=== PATIENT | female | born 1985 | race Caucasian/White ===

== ENCOUNTER 2016-12-27 19:23 | Emergency (ER) | payer OTHER ==
--- NOTE | 2016-12-27 19:43 | ED NURSING NOTES ---
Clinical Report - Nurses [facility] [address] [place] [address] 12/27/2016 19:27 Patient: SUNITHA ORTEGA TRIAGE Triage time 19:35. Chief Complaint: COUGH, RUNNY NOSE and SORE THROAT. --19:41 Sheriff Ren R.N. 19:35 12/27/16. BP: 144/72. HR: 70. RR: 18. O2 saturation: 100%. Temp: 98.3 F. Pain level now: 12/20. --19:41 Sheriff Ren R.N. Weight: 104.3 kg stated. Height/Length: 63 inches Per Patient. BMI: 40.7. --19:36 Sheriff Ren R.N. Medications None. --19:35 Sheriff Ren R.N. Allergies PCN. --19:35 Sheriff Ren R.N. History Arrived by private vehicle. Historian: patient. Onset. (2 days ago). SOCIAL HX: Smoker- current status unknown (No). No alcohol use or drug use. FALL RISK ASSESSMENT: Fall risk assessment completed. No fall risk identified. NUTRITIONAL RISK ASSESSMENT: The nutritional risk assessment revealed no deficiencies. FUNCTIONAL ASSESSMENT: Functional assessment: no impairments noted. LEARNING NEEDS ASSESSMENT: The learning needs assessment revealed no barriers. SKIN INTEGRITY ASSESSMENT: Skin integrity risk assessment completed. No skin integrity risk identified. --19:41 Sheriff Ren R.N. PROBLEMS: Folliculitis. Dental Abscess. Pharyngitis. URI. Herpes Genitalis. STD - Sexually Transmitted Disease. SA. Viral Disease. Dental Caries. Dental Pain. Immunizations. LNMP - Last Normal Menstrual Period. Gallbladder Disease. Asthma. --19:36 Sheriff Ren R.N. Interventions ID band on patient. --19:41 Sheriff Ren R.N. PHYSICAL ASSESSMENT Ambulatory to room. GENERAL / NEURO / PSYCH: Alert. Oriented X 4. Appears in no acute distress. HEENT: Voice within normal limits. Mucous membranes are pink. RESPIRATORY: Respirations not labored. CVS: Capillary refill less than 2 seconds. SKIN: Skin is warm and dry. --19:41 Sheriff Ren R.N. NURSING PROGRESS NOTES Two patient identifiers checked. Call light placed in reach. Side rails up x 2. Bed placed in lowest position. Brakes of bed on. --19:41 Sheriff Ren R.N. 19:45 12/27/2016 Prednisone PO Tablets 60 mg given. Allergies verified and confirmed 5 rights. --19:45 Destiny Dior R.N. DISPOSITION / DISCHARGE Condition at departure: stable. No learning barriers present. Discharge instructions provided and reviewed with the patient. Reviewed medication(s) side effects, precautions, dosing and course information. Prescription(s) given to the patient. Work note given. Patient verbalized understanding. Written instructions provided in [employer]. The patient was discharged home and accompanied by pipe setter. She left the Emergency Department ambulatory and via private vehicle. [employer] Manager driving. --19:57 Destiny Dior R.N. 19:56 12/27/16. BP: deferred. HR: deferred. RR: 16 (regular and unlabored). O2 saturation: deferred. Temp: deferred. Powell-Correa pain scale: 10. --19:57 Destiny Dior R.N. Locked/Released at 12/27/2016 19:57 by Destiny Dior R.N.
--- NOTE | 2016-12-27 19:43 | ED NURSING NOTES ---
Clinical Report - Nurses [facility] [address] [place] [address] 12/27/2016 19:27 Patient: SUNITHA ORTEGA TRIAGE Triage time 19:35. Chief Complaint: COUGH, RUNNY NOSE and SORE THROAT. --19:41 Sheriff Ren R.N. 19:35 12/27/16. BP: 144/72. HR: 70. RR: 18. O2 saturation: 100%. Temp: 98.3 F. Pain level now: 12/20. --19:41 Sheriff Ren R.N. Weight: 104.3 kg stated. Height/Length: 63 inches Per Patient. BMI: 40.7. --19:36 Sheriff Ren R.N. Medications None. --19:35 Sheriff Ren R.N. Allergies PCN. --19:35 Sheriff Ren R.N. History Arrived by private vehicle. Historian: patient. Onset. (2 days ago). SOCIAL HX: Smoker- current status unknown (No). No alcohol use or drug use. FALL RISK ASSESSMENT: Fall risk assessment completed. No fall risk identified. NUTRITIONAL RISK ASSESSMENT: The nutritional risk assessment revealed no deficiencies. FUNCTIONAL ASSESSMENT: Functional assessment: no impairments noted. LEARNING NEEDS ASSESSMENT: The learning needs assessment revealed no barriers. SKIN INTEGRITY ASSESSMENT: Skin integrity risk assessment completed. No skin integrity risk identified. --19:41 Sheriff Ren R.N. PROBLEMS: Folliculitis. Dental Abscess. Pharyngitis. URI. Herpes Genitalis. STD - Sexually Transmitted Disease. SA. Viral Disease. Dental Caries. Dental Pain. Immunizations. LNMP - Last Normal Menstrual Period. Gallbladder Disease. Asthma. --19:36 Sheriff Ren R.N. Interventions ID band on patient. --19:41 Sheriff Ren R.N. PHYSICAL ASSESSMENT Ambulatory to room. GENERAL / NEURO / PSYCH: Alert. Oriented X 4. Appears in no acute distress. HEENT: Voice within normal limits. Mucous membranes are pink. RESPIRATORY: Respirations not labored. CVS: Capillary refill less than 2 seconds. SKIN: Skin is warm and dry. --19:41 Sheriff Ren R.N. NURSING PROGRESS NOTES Two patient identifiers checked. Call light placed in reach. Side rails up x 2. Bed placed in lowest position. Brakes of bed on. --19:41 Sheriff Ren R.N. 19:45 12/27/2016 Prednisone PO Tablets 60 mg given. Allergies verified and confirmed 5 rights. --19:45 Destiny Dior R.N. DISPOSITION / DISCHARGE Condition at departure: stable. No learning barriers present. Discharge instructions provided and reviewed with the patient. Reviewed medication(s) side effects, precautions, dosing and course information. Prescription(s) given to the patient. Work note given. Patient verbalized understanding. Written instructions provided in [place] [employer] [place]. The patient was discharged home and accompanied by dental front office assistant. She left the Emergency Department ambulatory and via private vehicle. Dredge Hand driving. --19:57 Destiny Dior R.N. 19:56 12/27/16. BP: deferred. HR: deferred. RR: 16 (regular and unlabored). O2 saturation: deferred. Temp: deferred. Powell-Correa pain scale: 10. --19:57 Destiny Dior R.N. Locked/Released at 12/27/2016 19:57 by Destiny Dior R.N.
--- NOTE | 2016-12-27 19:43 | ED ORDER SUMMARY ---
..... Patient: SUNITHA ORTEGA N OrderSheet [facility] VisitID: [id number] [address] [place] [address] 31y, F Registration Date/Time: 12/27/2016 ORDER SHEET Weight: 104.3 kg (stated) Allergies: PCN GENERAL ORDERS: MEDICATION ORDERS: Prednisone PO 60 mg (NOW) (19:40 12/27/2016 Piper KNOX) (Ack 19:43 Maxi R.NViry) (19:45 Maxi Carbajal.N.) IV FLUIDS: ORDER SHEET NOTES: [Electronically signed by Destiny Dior R.N. (19:57 12/27/2016)] [Electronically signed by Lul Mcfarland DO (20:53 12/27/2016)] [Electronically locked/signed by Destiny Dior R.N. (19:57 12/27/2016)]
--- NOTE | 2016-12-27 19:43 | ED ORDER SUMMARY ---
..... Patient: SUNITHA ORTEGA N OrderSheet [facility] VisitID: [id number] [address] [place] [address] 31y, F Registration Date/Time: 12/27/2016 ORDER SHEET Weight: 104.3 kg (stated) Allergies: PCN GENERAL ORDERS: MEDICATION ORDERS: Prednisone PO 60 mg (NOW) (19:40 12/27/2016 Piper KNOX) (Ack 19:43 Maxi R.NViry) (19:45 Maxi Carbajal.N.) IV FLUIDS: ORDER SHEET NOTES: [Electronically signed by Destiny Dior R.N. (19:57 12/27/2016)] [Electronically signed by Lul Mcfarland DO (20:53 12/27/2016)] [Electronically locked/signed by Destiny Dior R.N. (19:57 12/27/2016)]
--- NOTE | 2016-12-27 19:43 | ED CLINICAL REPORT ---
Clinical Report - Physicians/Mid Levels [facility] [address] [place] [address] 12/27/2016 19:27 Patient: SUNITHA ORTEGA Time Seen: 19:33. Arrived- By private vehicle. Historian- patient. HISTORY OF PRESENT ILLNESS Chief Complaint: COUGH. This started several days ago and is still present. It was gradual in onset and has been waxing/waning. The illness is described as moderate. The patient has had a cough, nasal congestion and a nasal discharge. No difficulty breathing, chest discomfort or pain, fever or muscle aches. No chills or sore throat. Similar symptoms previously: Recent medical care: Not recently seen/assessed. REVIEW OF SYSTEMS No headache, nausea, vomiting, diarrhea or abdominal pain. No pedal edema, calf pain, difficulty with urination, skin rash or joint pain. She has had mild eye discomfort (watery discharge bilaterally) involving the right eye and left eye with discharge. Denies current . She has had hay fever. All systems otherwise negative, except as recorded above. PAST HISTORY Dental problems Strep throat PROBLEMS: Folliculitis. Dental Abscess. Pharyngitis. URI. Herpes Genitalis. STD - Sexually Transmitted Disease. SA. Viral Disease. Dental Caries. Dental Pain. Gallbladder Disease. Asthma. SOCIAL HISTORY Never smoker. History of drug use "vapes" marijuana occasionally. No alcohol use. FAMILY HISTORY Asthma in first-degree relative (a child). Child with environmental allergies - uses daily Flomax. ADDITIONAL NOTES The nursing notes have been reviewed. PHYSICAL EXAM Vital Signs: 12/27/2016 19:35 BP: 144/72. HR: 70. RR: 18. O2 saturation: 100%. Temp: 98.3 F. Pain level now: 5/10. Appearance: Alert. No acute distress. Eyes: Mild redness of the right conjunctiva and thin, clear exudate on the right; mild redness of the left conjunctiva and thin, clear exudate on the left. Eyes normal inspection. No scleral icterus or pale conjunctivae. ENT: Thin, clear nasal discharge present. Pharynx normal. Uvula midline. No pharyngeal erythema, mouth ulcerations, tonsillar exudate, peritonsillar mass or muffled or hoarse voice. No trismus or trouble handling secretions. The mucous membranes are not dry. Neck: Normal inspection. Neck supple. CVS: Normal heart rate and rhythm. Heart sounds normal. Pulses normal. Respiratory: No respiratory distress. Breath sounds normal. No decreased breath sounds, rales, rhonchi, wheezes or prolonged expiration. No stridor. Abdomen: Soft and nontender. Back: Normal inspection. Skin: Skin warm and dry. Normal skin color. No rash. Normal skin turgor. Extremities: Extremities exhibit normal ROM. No calf tenderness. No lower extremity edema. Neuro: Oriented X 3. No motor deficit. LABS, X-RAYS, AND EKG Pulse Oximetry: 12/27/2016 19:35 O2 saturation: 100%. (FIO2 - room air). Interpretation: normal. PROGRESS AND PROCEDURES Course of Care: Prednisone 60 mg PO given. Most c/w allergic mechanism - doubt bacterial process. Patient/family counseled. Old ED records reviewed. Disposition: Discharged. Condition: stable and improved. CLINICAL IMPRESSION Seasonal allergic rhinitis. Acute atopic conjunctivitis of the right eye and left eye. INSTRUCTIONS Do not work for two days. Drink plenty of fluids. Do not smoke. Warnings: Further evaluation is necessary in order to recheck abnormal lab, obtain test results, conduct further tests and assess the possibility of serious illness. It is very important to follow up with a physician. GENERAL WARNINGS: Return or contact your physician immediately if your condition worsens or changes unexpectedly, if not improving as expected, or if other problems arise. Prescription Medications: Albuterol HFA oral inhaler: inhale 1 to 2 puffs every four to six hours as needed for difficulty breathing. Dispense one (1) unit. No refills. (with spacer) Prednisone 20 mg: take 3 orally every day for 4 days. Dispense sufficient quantity. No refills. Zyrtec 10 mg: take 1 tablet orally every day as needed. Dispense twenty (20). No refills. Substitution is permissible. Flonase nasal spray: 2 sprays to each nostril once daily for allergies. Dispense one (1) unit. No refills. Substitution is permissible. OTC Medications: Afrin nasal spray (Available over the counter): Take according to label instructions. Follow-up: Follow up with your doctor in about two days. Follow-up with: [facility], , , [address] [place] [address], , [place], ; [facility], , , [address], [place] [address]; [facility], Family Practice, , [address] [place] [address] Follow up in about two days. Follow-up with: Tricia Jordan MD, Family Practice, , [facility], [address] [place] [address] Follow up in about two days. (Electronically signed by Lul Mcfarland DO 12/27/2016 20:53)
--- NOTE | 2016-12-27 19:43 | ED CLINICAL REPORT ---
Clinical Report - Physicians/Mid Levels [facility] [address] [place] [address] 12/27/2016 19:27 Patient: SUNITHA ORTEGA Time Seen: 19:33. Arrived- By private vehicle. Historian- patient. HISTORY OF PRESENT ILLNESS Chief Complaint: COUGH. This started several days ago and is still present. It was gradual in onset and has been waxing/waning. The illness is described as moderate. The patient has had a cough, nasal congestion and a nasal discharge. No difficulty breathing, chest discomfort or pain, fever or muscle aches. No chills or sore throat. Similar symptoms previously: Recent medical care: Not recently seen/assessed. REVIEW OF SYSTEMS No headache, nausea, vomiting, diarrhea or abdominal pain. No pedal edema, calf pain, difficulty with urination, skin rash or joint pain. She has had mild eye discomfort (watery discharge bilaterally) involving the right eye and left eye with discharge. Denies current . She has had hay fever. All systems otherwise negative, except as recorded above. PAST HISTORY Dental problems Strep throat PROBLEMS: Folliculitis. Dental Abscess. Pharyngitis. URI. Herpes Genitalis. STD - Sexually Transmitted Disease. SA. Viral Disease. Dental Caries. Dental Pain. Gallbladder Disease. Asthma. SOCIAL HISTORY Never smoker. History of drug use "vapes" marijuana occasionally. No alcohol use. FAMILY HISTORY Asthma in first-degree relative (a child). Child with environmental allergies - uses daily Flomax. ADDITIONAL NOTES The nursing notes have been reviewed. PHYSICAL EXAM Vital Signs: 12/27/2016 19:35 BP: 144/72. HR: 70. RR: 18. O2 saturation: 100%. Temp: 98.3 F. Pain level now: 5/10. Appearance: Alert. No acute distress. Eyes: Mild redness of the right conjunctiva and thin, clear exudate on the right; mild redness of the left conjunctiva and thin, clear exudate on the left. Eyes normal inspection. No scleral icterus or pale conjunctivae. ENT: Thin, clear nasal discharge present. Pharynx normal. Uvula midline. No pharyngeal erythema, mouth ulcerations, tonsillar exudate, peritonsillar mass or muffled or hoarse voice. No trismus or trouble handling secretions. The mucous membranes are not dry. Neck: Normal inspection. Neck supple. CVS: Normal heart rate and rhythm. Heart sounds normal. Pulses normal. Respiratory: No respiratory distress. Breath sounds normal. No decreased breath sounds, rales, rhonchi, wheezes or prolonged expiration. No stridor. Abdomen: Soft and nontender. Back: Normal inspection. Skin: Skin warm and dry. Normal skin color. No rash. Normal skin turgor. Extremities: Extremities exhibit normal ROM. No calf tenderness. No lower extremity edema. Neuro: Oriented X 3. No motor deficit. LABS, X-RAYS, AND EKG Pulse Oximetry: 12/27/2016 19:35 O2 saturation: 100%. (FIO2 - room air). Interpretation: normal. PROGRESS AND PROCEDURES Course of Care: Prednisone 60 mg PO given. Most c/w allergic mechanism - doubt bacterial process. Patient/family counseled. Old ED records reviewed. Disposition: Discharged. Condition: stable and improved. CLINICAL IMPRESSION Seasonal allergic rhinitis. Acute atopic conjunctivitis of the right eye and left eye. INSTRUCTIONS Do not work for two days. Drink plenty of fluids. Do not smoke. Warnings: Further evaluation is necessary in order to recheck abnormal lab, obtain test results, conduct further tests and assess the possibility of serious illness. It is very important to follow up with a physician. GENERAL WARNINGS: Return or contact your physician immediately if your condition worsens or changes unexpectedly, if not improving as expected, or if other problems arise. Prescription Medications: Albuterol HFA oral inhaler: inhale 1 to 2 puffs every four to six hours as needed for difficulty breathing. Dispense one (1) unit. No refills. (with spacer) Prednisone 20 mg: take 3 orally every day for 4 days. Dispense sufficient quantity. No refills. Zyrtec 10 mg: take 1 tablet orally every day as needed. Dispense twenty (20). No refills. Substitution is permissible. Flonase nasal spray: 2 sprays to each nostril once daily for allergies. Dispense one (1) unit. No refills. Substitution is permissible. OTC Medications: Afrin nasal spray (Available over the counter): Take according to label instructions. Follow-up: Follow up with your doctor in about two days. Follow-up with: [facility], , , [address] [place] [address], , [place], ; [facility], , , [address], [place] [address]; [facility], Family Practice, , [address] [place] [address] Follow up in about two days. Follow-up with: Tricia Jordan MD, Family Practice, , [facility], [address] [place] [address] Follow up in about two days. (Electronically signed by Lul Mcfarland DO 12/27/2016 20:53)
--- NOTE | 2016-12-27 20:53 | ED MAR SUMMARY ---
..... Medication Administration Record [facility] [address] [place] [address] Patient: SUNITHA ORTEGA Visit ID: [id number] 31y, F Weight: 104.3 kg Height/Length: 63 in BMI: 40.7 ALLERGIES: PCN Given 19:45 12/27/2016 Destiny Dior R.N. Medication Administered: PREDNISONE [PO], Dose: 60 mg Tablets PO. Medication Ordered: Prednisone PO 60 mg (NOW).
--- NOTE | 2016-12-27 20:53 | ED DISCHARGE INSTRUCTIONS ---
Patient: SUNITHA ORTEGA General Instructions [facility] VisitID: [id number] [address], [place], [place] [id number] 31y, F Registration Date/Time: 12/27/2016 Seasonal allergic rhinitis. Acute atopic conjunctivitis of the right eye and left eye. INSTRUCTIONS Do not work for two days. Drink plenty of fluids. Do not smoke. Warnings: Further evaluation is necessary in order to recheck abnormal lab, obtain test results, conduct further tests and assess the possibility of serious illness. It is very important to follow up with a physician. GENERAL WARNINGS: Return or contact your physician immediately if your condition worsens or changes unexpectedly, if not improving as expected, or if other problems arise. Prescription Medications: Albuterol HFA oral inhaler: inhale 1 to 2 puffs every four to six hours as needed for difficulty breathing. Dispense one (1) unit. No refills. (with spacer) Prednisone 20 mg: take 3 orally every day for 4 days. Dispense sufficient quantity. No refills. Zyrtec 10 mg: take 1 tablet orally every day as needed. Dispense twenty (20). No refills. Substitution is permissible. Flonase nasal spray: 2 sprays to each nostril once daily for allergies. Dispense one (1) unit. No refills. Substitution is permissible. OTC Medications: Afrin nasal spray (Available over the counter): Take according to label instructions. Follow-up: Follow up with your doctor in about two days. Follow-up with: [facility], , , [address] [place] [address], , [place], ; [facility], , , [address], [place] [address]; [facility], , [address] [place] [address] Follow up in about two days. Follow-up with: Tricia Jordan MD, [facility], , [facility], [address] [place] [address] Follow up in about two days. ADDITIONAL INFORMATION Nasal Allergy Nasal Allergy, also called Allergic Rhinitis occurs after exposure to pollen, molds, mildew, animal dander (scales from animal skin, hair and feathers), dust, smoke and fumes. (These are called allergens). When pollen causes a nasal allergy it is commonly called Hay Fever. When these particles contact the lining of the nose, eyes, eyelids, sinuses or throat, they cause the cells to release a chemical called histamine. Histamine may cause a watery discharge from the eyes or nose. It may also cause violent sneezing, nasal congestion, itching of the eyes, nose, throat and mouth. Prevention: Nasal allergy cannot be cured but symptoms can be reduced. Avoid or reduce exposure to the allergen when possible, by the following measures: POLLEN Stay indoors on hot windy days during pollen season Keep windows and doors closed Use an air conditioner with an electrostatic filter DUST, MOLD & MILDEW Follow these measures, especially in the bedroom: When cleaning use vacuum digital content coordinator, oiled mops and damp cloths; dont stir up the dust. Once a week clean the amaya, woodwork and floors with a damp mop and vacuum carpets. Once a year clean the bed frame and springs (do this outside). Cover the box springs with plastic. Do not use mattress pads. Remove stuffed chairs and rugs from the bedroom. Discard old moldy books, furniture and bedding. Use synthetic fabrics for furniture, curtains and bedding. Avoid quilts, comforters, and stuffed toys. ANIMAL DANDER Remove all indoor pets (except fish and reptiles). Avoid all contact with furry animals. Avoid down-stuffed pillows and coats. Some persons are also sensitive to wool and should avoid it. OTHER IRRITANTS Do not smoke and avoid the smoke of others. Some persons are sensitive to cosmetic powder, baby powder and powdered laundry detergents. Therefore, these powders should be avoided. Home Care: DECONGESTANT pills and sprays (Sudafed, NeoSynephrine, Afrin), reduce tissue swelling and watery discharge. Overuse of nasal decongestant sprays may make symptoms worse. Do not use these more often than recommended. ANTIHISTAMINES block the release of histamine during the allergic response. Antihistamines are more effective when taken BEFORE symptoms develop. Unless a prescription antihistamine was prescribed, you may take CLARITIN (loratadine). (Claritin is an xioa-czw-qpdgdoa antihistamine that does not cause drowsiness.) STEROID nasal sprays (Beconase, Vancenase, Nasalide) or oral steroids (Prednisone) may also be prescribed for more severe symptoms. These help to reduce the local inflammation which adds to the allergic response. If you have ASTHMA, pollen season may make your asthma symptoms worse. It is important that you use your asthma medicines as directed during this time to prevent or treat attacks. Some persons with asthma have a worsening of their asthma symptoms when taking antihistamines. If you notice this, stop the antihistamines and notify your doctor. Follow Up with your doctor or as directed by our staff if your symptoms are not improving with the treatment advised. Get Prompt Medical Attention if any of the following occur: Facial or sinus pain or colored drainage from the nose Severe headache or ear pain Fever of 100.4F (38C) or higher, or as directed by your healthcare provider Wheezing or trouble breathing (If you already know you have asthma, return if your asthma symptoms do not respond to the usual doses of your medicine) Cough with lots of colored sputum (mucus) Seasonal Allergy Seasonal Allergy is also called Hay Fever. It may occur after a person is exposed to pollens released from grasses, weeds, trees and shrubs. This type of allergy occurs during the spring and summer when the pollen contacts the lining of the nose, eyes, eyelids, sinuses and throat. This causes discharge from the eyes or nose. Violent sneezing, nasal congestion, post-nasal drip, itching of the eyes, nose, throat and mouth, scratchy throat, and dry cough may also occur. Home Care: Seasonal allergy cannot be cured, but symptoms can be reduced by these measures: Avoid or reduce exposure to the allergen as much as you can: Stay indoors on hot windy days of pollen season. Keep windows and doors closed. Use an air conditioner with an electrostatic filter. DECONGESTANT pills and sprays (Sudafed, NeoSynephrine, Afrin) reduce tissue swelling and watery discharge. If you use the sprays too much, the symptoms may get worse. Do not use these more often than recommended. Do not use decongestants in children unless advised by your doctor. ANTIHISTAMINES block the release of histamine during the allergic response. They work better when taken BEFORE symptoms develop. Unless a prescription antihistamine was prescribed, you may take Claritin (loratadine). This is an zjou-nbx-iiyphcy non-sedating antihistamine. It does not make you drowsy. STEROID nasal sprays (Beconase, Vancenase, Nasalide) or oral steroids (Prednisone) may also be prescribed. These help to reduce the local inflammation that adds to the allergic response. If you have ASTHMA, pollen season may make your asthma symptoms worse. It is important that you use your asthma medicines as directed during this time to prevent or treat attacks. Some persons with ASTHMA have asthma symptoms that get worse when they take ANTIHISTAMINES. This is due to the drying effect on the lungs. If you notice this, stop the antihistamines, drink extra fluids and notify your doctor. If you have sinus congestion or drainage, a saline nasal rinse may give relief. A saline nasal rinse lessens the swelling and clears excess mucus. This allows sinuses to drain. Prepackaged kits are sold at most drug stores. These contain pre-mixed salt packets and an irrigation device. Follow Up with your doctor or as directed by our staff if your symptoms do not improve with the treatment advised. Get Prompt Medical Attention if any of the following occur: Facial, ear or sinus pain; colored drainage from the nose Severe headache Fever of 100.4F (38C) or higher, or as directed by your healthcare provider Wheezing or trouble breathing (If you know you have asthma, return if your asthma symptoms do not respond to the usual doses of your medicine) Cough with lots of colored sputum (mucus) Conjunctivitis, Allergic Allergic Conjunctivitis is a reaction to dust or pollen in the air. This causes itching and redness in the membranes of the eyelids. There may be swelling of the lids, redness, and a gritty or scratchy feeling in the eye. Home Care: Eye drops may be prescribed to reduce itching and redness. Use these as directed. Otherwise, Visine, Vasocon or other vuxi-jhm-lnllzih decongestant eye drops may be used. Apply a cool compress (towel soaked in cool water) to the affected eye 3-4 times a day to reduce swelling and itching. It is common to have mucus drainage during the night causing the eyelids to become crusted by morning. Use a warm wet cloth to wipe this away. You may also use saline irrigating solution or artificial tears to rinse away mucus inside the eye. Do not patch the eye. You may use acetaminophen (Tylenol) or ibuprofen (Motrin, Advil) to control pain, unless another medicine was prescribed. [ NOTE: If you have chronic liver or kidney disease or ever had a stomach ulcer or GI bleeding, talk with your doctor before using these medicines.] Do not wear contact lenses until your eyes have healed and all symptoms are gone. Follow Up with your doctor or this facility as directed, or if there has not been improvement within five days. Get Prompt Medical Attention if any of the following occur: Increased swelling of the eyelid New or worsening drainage from the eye Increasing redness around the eye Facial swelling Albuterol Sulfate Pressurized inhalation, suspension What is this medicine? ALBUTEROL (al BYOO ter ole) is a bronchodilator. It helps open up the airways in your lungs to make it easier to breathe. This medicine is used to treat and to prevent bronchospasm. How should I use this medicine? This medicine is for inhalation through the mouth. Follow the directions on your prescription label. Take your medicine at regular intervals. Do not use more often than directed. Make sure that you are using your inhaler correctly. Ask you doctor or health care provider if you have any questions. Talk to your human resources officer regarding the use of this medicine in children. Special care may be needed. What side effects may I notice from receiving this medicine? Side effects that you should report to your doctor or health wound care rn as soon as possible: allergic reactions like skin rash, itching or hives, swelling of the face, lips, or tongue breathing problems chest pain feeling faint or lightheaded, falls high blood pressure irregular heartbeat fever muscle cramps or weakness pain, tingling, numbness in the hands or feet vomiting Side effects that usually do not require medical attention (report to your doctor or health wound care rn if they continue or are bothersome): cough difficulty sleeping headache nervousness or trembling stomach upset stuffy or runny nose throat irritation unusual taste What may interact with this medicine? anti-infectives like chloroquine and pentamidine caffeine cisapride diuretics medicines for colds medicines for depression or for emotional or psychotic conditions medicines for weight loss including some herbal products methadone some antibiotics like clarithromycin, erythromycin, levofloxacin, and linezolid some heart medicines steroid hormones like dexamethasone, cortisone, hydrocortisone theophylline thyroid hormones What if I miss a dose? If you miss a dose, use it as soon as you can. If it is almost time for your next dose, use only that dose. Do not use double or extra doses. Where should I keep my medicine? Keep out of the reach of children. Store at room temperature between 15 and 30 degrees C (59 and 86 degrees F). The contents are under pressure and may burst when exposed to heat or flame. Do not freeze. This medicine does not work as well if it is too cold. Throw away any unused medicine after the expiration date. Inhalers need to be thrown away after the labeled number of puffs have been used or by the expiration date; whichever comes first. Ventolin HFA should be thrown away 12 months after removing from foil pouch. Check the instructions that come with your medicine. What should I tell my health care provider before I take this medicine? They need to know if you have any of the following conditions: diabetes heart disease or irregular heartbeat high blood pressure pheochromocytoma seizures thyroid disease an unusual or allergic reaction to albuterol, levalbuterol, sulfites, other medicines, foods, dyes, or preservatives or trying to get breast-feeding What should I watch for while using this medicine? Tell your doctor or health wound care rn if your symptoms do not improve. Do not use extra albuterol. If your asthma or bronchitis gets worse while you are using this medicine, call your doctor right away. If your mouth gets dry try chewing sugarless gum or sucking hard candy. Drink water as directed. Prednisone Oral tablet What is this medicine? PREDNISONE (PRED ni sone) is a corticosteroid. It is commonly used to treat inflammation of the skin, joints, lungs, and other organs. Common conditions treated include asthma, allergies, and arthritis. It is also used for other conditions, such as blood disorders and diseases of the adrenal glands. How should I use this medicine? Take this medicine by mouth with a glass of water. Follow the directions on the prescription label. Take this medicine with food. If you are taking this medicine once a day, take it in the morning. Do not take more medicine than you are told to take. Do not suddenly stop taking your medicine because you may develop a severe reaction. Your doctor will tell you how much medicine to take. If your doctor wants you to stop the medicine, the dose may be slowly lowered over time to avoid any side effects. Talk to your human resources officer regarding the use of this medicine in children. Special care may be needed. What side effects may I notice from receiving this medicine? Side effects that you should report to your doctor or health wound care rn as soon as possible: allergic reactions like skin rash, itching or hives, swelling of the face, lips, or tongue changes in emotions or moods changes in vision depressed mood eye pain fever or chills, cough, sore throat, pain or difficulty passing urine increased thirst swelling of ankles, feet Side effects that usually do not require medical attention (report to your doctor or health wound care rn if they continue or are bothersome): confusion, excitement, restlessness headache nausea, vomiting skin problems, acne, thin and shiny skin trouble sleeping weight gain What may interact with this medicine? Do not take this medicine with any of the following medications: metyrapone mifepristone This medicine may also interact with the following medications: aminoglutethimide amphotericin B aspirin and aspirin-like medicines barbiturates certain medicines for diabetes, like glipizide or glyburide cholestyramine cholinesterase inhibitors cyclosporine digoxin diuretics ephedrine female hormones, like estrogens and control pills isoniazid ketoconazole NSAIDS, medicines for pain and inflammation, like ibuprofen or naproxen phenytoin rifampin toxoids vaccines warfarin What if I miss a dose? If you miss a dose, take it as soon as you can. If it is almost time for your next dose, talk to your doctor or health wound care rn. You may need to miss a dose or take an extra dose. Do not take double or extra doses without advice. Where should I keep my medicine? Keep out of the reach of children. Store at room temperature between 15 and 30 degrees C (59 and 86 degrees F). Protect from light. Keep container tightly closed. Throw away any unused medicine after the expiration date. What should I tell my health care provider before I take this medicine? They need to know if you have any of these conditions: Gilmanton's syndrome diabetes glaucoma heart disease high blood pressure infection (especially a virus infection such as chickenpox, cold sores, or herpes) kidney disease liver disease mental illness myasthenia gravis osteoporosis seizures stomach or intestine problems thyroid disease an unusual or allergic reaction to lactose, prednisone, other medicines, foods, dyes, or preservatives or trying to get breast-feeding What should I watch for while using this medicine? Visit your doctor or health wound care rn for regular checks on your progress. If you are taking this medicine over a prolonged period, carry an identification card with your name and address, the type and dose of your medicine, and your doctor's name and address. This medicine may increase your risk of getting an infection. Tell your doctor or health wound care rn if you are around anyone with measles or chickenpox, or if you develop sores or blisters that do not heal properly. If you are going to have surgery, tell your doctor or health wound care rn that you have taken this medicine within the last twelve months. Ask your doctor or health wound care rn about your diet. You may need to lower the amount of salt you eat. This medicine may affect blood sugar levels. If you have diabetes, check with your doctor or health wound care rn before you change your diet or the dose of your diabetic medicine. Cetirizine Hydrochloride Oral tablet What is this medicine? CETIRIZINE (se TI ra zerebeca) is an antihistamine. This medicine is used to treat or prevent symptoms of allergies. It is also used to help reduce itchy skin rash and hives. How should I use this medicine? Take this medicine by mouth with a glass of water. Follow the directions on the prescription label. You can take this medicine with food or on an empty stomach. Take your medicine at regular times. Do not take more often than directed. You may need to take this medicine for several days before your symptoms improve. Talk to your human resources officer regarding the use of this medicine in children. Special care may be needed. While this drug may be prescribed for children as young as 6 years of age for selected conditions, precautions do apply. What side effects may I notice from receiving this medicine? Side effects that you should report to your doctor or health wound care rn as soon as possible: allergic reactions like skin rash, itching or hives, swelling of the face, lips, or tongue changes in vision or hearing fast heartbeat high blood pressure infection trouble passing urine or change in the amount of urine Side effects that usually do not require medical attention (report to your doctor or health wound care rn if they continue or are bothersome): irritability loss of sleep sore throat stomach pain swelling What may interact with this medicine? other medicines for colds or allergies theophylline What if I miss a dose? If you miss a dose, take it as soon as you can. If it is almost time for your next dose, take only that dose. Do not take double or extra doses. Where should I keep my medicine? Keep out of the reach of children. Store at room temperature between 15 and 30 degrees C (59 and 86 degrees F). Throw away any unused medicine after the expiration date. What should I tell my health care provider before I take this medicine? They need to know if you have any of these conditions: kidney disease liver disease an unusual or allergic reaction to cetirizine, hydroxyzine, other medicines, foods, dyes, or preservatives or trying to get breast-feeding What should I watch for while using this medicine? Visit your doctor or health wound care rn for regular checks on your health. Tell your doctor if your symptoms do not improve. You may get drowsy or dizzy. Do not drive, use machinery, or do anything that needs mental alertness until you know how this medicine affects you. Do not stand or sit up quickly, especially if you are an older patient. This reduces the risk of dizzy or fainting spells. Your mouth may get dry. Chewing sugarless gum or sucking hard candy, and drinking plenty of water may help. Contact your doctor if the problem does not go away or is severe. Fluticasone Propionate Nasal spray, solution What is this medicine? FLUTICASONE (floo TIK a sone) is a corticosteroid. It helps decrease inflammation in your nose. This medicine is used to treat the symptoms of allergies like sneezing, itching, and runny or stuffy nose. How should I use this medicine? This medicine is for use in the nose. Follow the directions on your prescription label. This medicine works best if used regularly. Do not use more often than directed. Make sure that you are using your nasal spray correctly. Ask you doctor or health care provider if you have any questions. Talk to your human resources officer regarding the use of this medicine in children. While this drug may be prescribed for children as young as 4 years old for selected conditions, precautions do apply. What side effects may I notice from receiving this medicine? Side effects that you should report to your doctor or health wound care rn as soon as possible: allergic reactions like skin rash, itching or hives, swelling of the face, lips, or tongue changes in vision flu-like symptoms white patches or sores in the mouth or nose Side effects that usually do not require medical attention (report to your doctor or health wound care rn if they continue or are bothersome): burning or irritation inside the nose or throat cough headache nosebleed unusual taste or smell What may interact with this medicine? ketoconazole metyrapone some medicines for HIV vaccines What if I miss a dose? If you miss a dose, use it as soon as you remember. If it is almost time for your next dose, use only that dose and continue with your regular schedule. Do not use double or extra doses. Where should I keep my medicine? Keep out of the reach of children. Store at room temperature between 15 and 30 degrees C (59 and 86 degrees F). Throw away any unused medicine after the expiration date. What should I tell my health care provider before I take this medicine? They need to know if you have any of these conditions: infection, like tuberculosis, herpes, or fungal infection recent surgery on nose or sinuses taking corticosteroid by mouth an unusual or allergic reaction to fluticasone, steroids, other medicines, foods, dyes, or preservatives or trying to get breast-feeding What should I watch for while using this medicine? Visit your doctor or health wound care rn for regular checks on your progress. Some symptoms may improve within 12 hours after starting use. Check with your doctor or health wound care rn if there is no improvement in your condition after 3 weeks of use. Do not come in contact with people who have chickenpox or the measles while you are taking this medicine. If you do, call your doctor right away. You have been given the following additional information: Allergic Rhinitis Seasonal Allergy Conjunctivitis, Allergic Albuterol Sulfate Pressurized inhalation, suspension Prednisone Oral tablet Cetirizine Hydrochloride Oral tablet Fluticasone Propionate Nasal spray, solution Do not work for two days. (Electronically signed by Lul Mcfarland DO 12/27/2016 20:53)
--- NOTE | 2016-12-27 20:53 | ED MED RECONCILIATION SUMMARY ---
Patient: SUNITHA ORTEGA Medication Reconciliation Report [facility] VisitID: [id number] [address] [place] [address] 31y, F Registration Date/Time: 12/27/2016 Weight: 104.3 kg Height/Length: 63 in. BMI: 40.7 ALLERGIES: PCN The patient's Home Medications are listed below: NONE. The source(s) of the original Home Medication information: Not obtained. The following Medications were given to the patient in the Emergency Department: Prednisone [PO] PO 60 mg, administered: 12/27/2016 7:45:00 PM The following Medications were prescribed to the patient: Afrin nasal spray (Available over the counter): Take according to label instructions. -- Lul Mcfarland DO Albuterol HFA oral inhaler: inhale 1 to 2 puffs every four to six hours as needed for difficulty breathing. Dispense one (1) unit. No refills.(with spacer) -- Lul Mcfarland DO Prednisone 20 mg: take 3 orally every day for 4 days. Dispense sufficient quantity. No refills. -- Lul Mcfarland DO Zyrtec 10 mg: take 1 tablet orally every day as needed. Dispense twenty (20). No refills. Substitution is permissible. -- Lul Mcfarland DO Flonase nasal spray: 2 sprays to each nostril once daily for allergies. Dispense one (1) unit. No refills. Substitution is permissible. -- Lul Mcfarland DO
--- NOTE | 2016-12-27 20:53 | ED DISCHARGE INSTRUCTIONS ---
Patient: SUNITHA ORTEGA General Instructions [facility] VisitID: [id number] [address], [place], [place] [id number] 31y, F Registration Date/Time: 12/27/2016 Seasonal allergic rhinitis. Acute atopic conjunctivitis of the right eye and left eye. INSTRUCTIONS Do not work for two days. Drink plenty of fluids. Do not smoke. Warnings: Further evaluation is necessary in order to recheck abnormal lab, obtain test results, conduct further tests and assess the possibility of serious illness. It is very important to follow up with a physician. GENERAL WARNINGS: Return or contact your physician immediately if your condition worsens or changes unexpectedly, if not improving as expected, or if other problems arise. Prescription Medications: Albuterol HFA oral inhaler: inhale 1 to 2 puffs every four to six hours as needed for difficulty breathing. Dispense one (1) unit. No refills. (with spacer) Prednisone 20 mg: take 3 orally every day for 4 days. Dispense sufficient quantity. No refills. Zyrtec 10 mg: take 1 tablet orally every day as needed. Dispense twenty (20). No refills. Substitution is permissible. Flonase nasal spray: 2 sprays to each nostril once daily for allergies. Dispense one (1) unit. No refills. Substitution is permissible. OTC Medications: Afrin nasal spray (Available over the counter): Take according to label instructions. Follow-up: Follow up with your doctor in about two days. Follow-up with: [facility], , , [address] [place] [address], , [place], ; [facility], , , [address], [place] [address]; [facility] , [address] [place] [address] Follow up in about two days. Follow-up with: Tricia Jordan MD, [facility], , [facility], [address] [place] [address] Follow up in about two days. ADDITIONAL INFORMATION Nasal Allergy Nasal Allergy, also called Allergic Rhinitis occurs after exposure to pollen, molds, mildew, animal dander (scales from animal skin, hair and feathers), dust, smoke and fumes. (These are called allergens). When pollen causes a nasal allergy it is commonly called Hay Fever. When these particles contact the lining of the nose, eyes, eyelids, sinuses or throat, they cause the cells to release a chemical called histamine. Histamine may cause a watery discharge from the eyes or nose. It may also cause violent sneezing, nasal congestion, itching of the eyes, nose, throat and mouth. Prevention: Nasal allergy cannot be cured but symptoms can be reduced. Avoid or reduce exposure to the allergen when possible, by the following measures: POLLEN Stay indoors on hot windy days during pollen season Keep windows and doors closed Use an air conditioner with an electrostatic filter DUST, MOLD & MILDEW Follow these measures, especially in the bedroom: When cleaning use vacuum packer inspector, oiled mops and damp cloths; dont stir up the dust. Once a week clean the amaya, woodwork and floors with a damp mop and vacuum carpets. Once a year clean the bed frame and springs (do this outside). Cover the box springs with plastic. Do not use mattress pads. Remove stuffed chairs and rugs from the bedroom. Discard old moldy books, furniture and bedding. Use synthetic fabrics for furniture, curtains and bedding. Avoid quilts, comforters, and stuffed toys. ANIMAL DANDER Remove all indoor pets (except fish and reptiles). Avoid all contact with furry animals. Avoid down-stuffed pillows and coats. Some persons are also sensitive to wool and should avoid it. OTHER IRRITANTS Do not smoke and avoid the smoke of others. Some persons are sensitive to cosmetic powder, baby powder and powdered laundry detergents. Therefore, these powders should be avoided. Home Care: DECONGESTANT pills and sprays (Sudafed, NeoSynephrine, Afrin), reduce tissue swelling and watery discharge. Overuse of nasal decongestant sprays may make symptoms worse. Do not use these more often than recommended. ANTIHISTAMINES block the release of histamine during the allergic response. Antihistamines are more effective when taken BEFORE symptoms develop. Unless a prescription antihistamine was prescribed, you may take CLARITIN (loratadine). (Claritin is an aauh-jdo-pfbawih antihistamine that does not cause drowsiness.) STEROID nasal sprays (Beconase, Vancenase, Nasalide) or oral steroids (Prednisone) may also be prescribed for more severe symptoms. These help to reduce the local inflammation which adds to the allergic response. If you have ASTHMA, pollen season may make your asthma symptoms worse. It is important that you use your asthma medicines as directed during this time to prevent or treat attacks. Some persons with asthma have a worsening of their asthma symptoms when taking antihistamines. If you notice this, stop the antihistamines and notify your doctor. Follow Up with your doctor or as directed by our staff if your symptoms are not improving with the treatment advised. Get Prompt Medical Attention if any of the following occur: Facial or sinus pain or colored drainage from the nose Severe headache or ear pain Fever of 100.4F (38C) or higher, or as directed by your healthcare provider Wheezing or trouble breathing (If you already know you have asthma, return if your asthma symptoms do not respond to the usual doses of your medicine) Cough with lots of colored sputum (mucus) Seasonal Allergy Seasonal Allergy is also called Hay Fever. It may occur after a person is exposed to pollens released from grasses, weeds, trees and shrubs. This type of allergy occurs during the spring and summer when the pollen contacts the lining of the nose, eyes, eyelids, sinuses and throat. This causes discharge from the eyes or nose. Violent sneezing, nasal congestion, post-nasal drip, itching of the eyes, nose, throat and mouth, scratchy throat, and dry cough may also occur. Home Care: Seasonal allergy cannot be cured, but symptoms can be reduced by these measures: Avoid or reduce exposure to the allergen as much as you can: Stay indoors on hot windy days of pollen season. Keep windows and doors closed. Use an air conditioner with an electrostatic filter. DECONGESTANT pills and sprays (Sudafed, NeoSynephrine, Afrin) reduce tissue swelling and watery discharge. If you use the sprays too much, the symptoms may get worse. Do not use these more often than recommended. Do not use decongestants in children unless advised by your doctor. ANTIHISTAMINES block the release of histamine during the allergic response. They work better when taken BEFORE symptoms develop. Unless a prescription antihistamine was prescribed, you may take Claritin (loratadine). This is an gqgx-sbm-ijubvwr non-sedating antihistamine. It does not make you drowsy. STEROID nasal sprays (Beconase, Vancenase, Nasalide) or oral steroids (Prednisone) may also be prescribed. These help to reduce the local inflammation that adds to the allergic response. If you have ASTHMA, pollen season may make your asthma symptoms worse. It is important that you use your asthma medicines as directed during this time to prevent or treat attacks. Some persons with ASTHMA have asthma symptoms that get worse when they take ANTIHISTAMINES. This is due to the drying effect on the lungs. If you notice this, stop the antihistamines, drink extra fluids and notify your doctor. If you have sinus congestion or drainage, a saline nasal rinse may give relief. A saline nasal rinse lessens the swelling and clears excess mucus. This allows sinuses to drain. Prepackaged kits are sold at most drug stores. These contain pre-mixed salt packets and an irrigation device. Follow Up with your doctor or as directed by our staff if your symptoms do not improve with the treatment advised. Get Prompt Medical Attention if any of the following occur: Facial, ear or sinus pain; colored drainage from the nose Severe headache Fever of 100.4F (38C) or higher, or as directed by your healthcare provider Wheezing or trouble breathing (If you know you have asthma, return if your asthma symptoms do not respond to the usual doses of your medicine) Cough with lots of colored sputum (mucus) Conjunctivitis, Allergic Allergic Conjunctivitis is a reaction to dust or pollen in the air. This causes itching and redness in the membranes of the eyelids. There may be swelling of the lids, redness, and a gritty or scratchy feeling in the eye. Home Care: Eye drops may be prescribed to reduce itching and redness. Use these as directed. Otherwise, Visine, Vasocon or other wszv-umn-elibzov decongestant eye drops may be used. Apply a cool compress (towel soaked in cool water) to the affected eye 3-4 times a day to reduce swelling and itching. It is common to have mucus drainage during the night causing the eyelids to become crusted by morning. Use a warm wet cloth to wipe this away. You may also use saline irrigating solution or artificial tears to rinse away mucus inside the eye. Do not patch the eye. You may use acetaminophen (Tylenol) or ibuprofen (Motrin, Advil) to control pain, unless another medicine was prescribed. [ NOTE: If you have chronic liver or kidney disease or ever had a stomach ulcer or GI bleeding, talk with your doctor before using these medicines.] Do not wear contact lenses until your eyes have healed and all symptoms are gone. Follow Up with your doctor or this facility as directed, or if there has not been improvement within five days. Get Prompt Medical Attention if any of the following occur: Increased swelling of the eyelid New or worsening drainage from the eye Increasing redness around the eye Facial swelling Albuterol Sulfate Pressurized inhalation, suspension What is this medicine? ALBUTEROL (al BYOO ter ole) is a bronchodilator. It helps open up the airways in your lungs to make it easier to breathe. This medicine is used to treat and to prevent bronchospasm. How should I use this medicine? This medicine is for inhalation through the mouth. Follow the directions on your prescription label. Take your medicine at regular intervals. Do not use more often than directed. Make sure that you are using your inhaler correctly. Ask you doctor or health care provider if you have any questions. Talk to your battery wrecker operator regarding the use of this medicine in children. Special care may be needed. What side effects may I notice from receiving this medicine? Side effects that you should report to your doctor or health animal care technician as soon as possible: allergic reactions like skin rash, itching or hives, swelling of the face, lips, or tongue breathing problems chest pain feeling faint or lightheaded, falls high blood pressure irregular heartbeat fever muscle cramps or weakness pain, tingling, numbness in the hands or feet vomiting Side effects that usually do not require medical attention (report to your doctor or health animal care technician if they continue or are bothersome): cough difficulty sleeping headache nervousness or trembling stomach upset stuffy or runny nose throat irritation unusual taste What may interact with this medicine? anti-infectives like chloroquine and pentamidine caffeine cisapride diuretics medicines for colds medicines for depression or for emotional or psychotic conditions medicines for weight loss including some herbal products methadone some antibiotics like clarithromycin, erythromycin, levofloxacin, and linezolid some heart medicines steroid hormones like dexamethasone, cortisone, hydrocortisone theophylline thyroid hormones What if I miss a dose? If you miss a dose, use it as soon as you can. If it is almost time for your next dose, use only that dose. Do not use double or extra doses. Where should I keep my medicine? Keep out of the reach of children. Store at room temperature between 15 and 30 degrees C (59 and 86 degrees F). The contents are under pressure and may burst when exposed to heat or flame. Do not freeze. This medicine does not work as well if it is too cold. Throw away any unused medicine after the expiration date. Inhalers need to be thrown away after the labeled number of puffs have been used or by the expiration date; whichever comes first. Ventolin HFA should be thrown away 12 months after removing from foil pouch. Check the instructions that come with your medicine. What should I tell my health care provider before I take this medicine? They need to know if you have any of the following conditions: diabetes heart disease or irregular heartbeat high blood pressure pheochromocytoma seizures thyroid disease an unusual or allergic reaction to albuterol, levalbuterol, sulfites, other medicines, foods, dyes, or preservatives or trying to get breast-feeding What should I watch for while using this medicine? Tell your doctor or health animal care technician if your symptoms do not improve. Do not use extra albuterol. If your asthma or bronchitis gets worse while you are using this medicine, call your doctor right away. If your mouth gets dry try chewing sugarless gum or sucking hard candy. Drink water as directed. Prednisone Oral tablet What is this medicine? PREDNISONE (PRED ni sone) is a corticosteroid. It is commonly used to treat inflammation of the skin, joints, lungs, and other organs. Common conditions treated include asthma, allergies, and arthritis. It is also used for other conditions, such as blood disorders and diseases of the adrenal glands. How should I use this medicine? Take this medicine by mouth with a glass of water. Follow the directions on the prescription label. Take this medicine with food. If you are taking this medicine once a day, take it in the morning. Do not take more medicine than you are told to take. Do not suddenly stop taking your medicine because you may develop a severe reaction. Your doctor will tell you how much medicine to take. If your doctor wants you to stop the medicine, the dose may be slowly lowered over time to avoid any side effects. Talk to your battery wrecker operator regarding the use of this medicine in children. Special care may be needed. What side effects may I notice from receiving this medicine? Side effects that you should report to your doctor or health animal care technician as soon as possible: allergic reactions like skin rash, itching or hives, swelling of the face, lips, or tongue changes in emotions or moods changes in vision depressed mood eye pain fever or chills, cough, sore throat, pain or difficulty passing urine increased thirst swelling of ankles, feet Side effects that usually do not require medical attention (report to your doctor or health animal care technician if they continue or are bothersome): confusion, excitement, restlessness headache nausea, vomiting skin problems, acne, thin and shiny skin trouble sleeping weight gain What may interact with this medicine? Do not take this medicine with any of the following medications: metyrapone mifepristone This medicine may also interact with the following medications: aminoglutethimide amphotericin B aspirin and aspirin-like medicines barbiturates certain medicines for diabetes, like glipizide or glyburide cholestyramine cholinesterase inhibitors cyclosporine digoxin diuretics ephedrine female hormones, like estrogens and control pills isoniazid ketoconazole NSAIDS, medicines for pain and inflammation, like ibuprofen or naproxen phenytoin rifampin toxoids vaccines warfarin What if I miss a dose? If you miss a dose, take it as soon as you can. If it is almost time for your next dose, talk to your doctor or health animal care technician. You may need to miss a dose or take an extra dose. Do not take double or extra doses without advice. Where should I keep my medicine? Keep out of the reach of children. Store at room temperature between 15 and 30 degrees C (59 and 86 degrees F). Protect from light. Keep container tightly closed. Throw away any unused medicine after the expiration date. What should I tell my health care provider before I take this medicine? They need to know if you have any of these conditions: Emerson's syndrome diabetes glaucoma heart disease high blood pressure infection (especially a virus infection such as chickenpox, cold sores, or herpes) kidney disease liver disease mental illness myasthenia gravis osteoporosis seizures stomach or intestine problems thyroid disease an unusual or allergic reaction to lactose, prednisone, other medicines, foods, dyes, or preservatives or trying to get breast-feeding What should I watch for while using this medicine? Visit your doctor or health animal care technician for regular checks on your progress. If you are taking this medicine over a prolonged period, carry an identification card with your name and address, the type and dose of your medicine, and your doctor's name and address. This medicine may increase your risk of getting an infection. Tell your doctor or health animal care technician if you are around anyone with measles or chickenpox, or if you develop sores or blisters that do not heal properly. If you are going to have surgery, tell your doctor or health animal care technician that you have taken this medicine within the last twelve months. Ask your doctor or health animal care technician about your diet. You may need to lower the amount of salt you eat. This medicine may affect blood sugar levels. If you have diabetes, check with your doctor or health animal care technician before you change your diet or the dose of your diabetic medicine. Cetirizine Hydrochloride Oral tablet What is this medicine? CETIRIZINE (se TI ra zerebeca) is an antihistamine. This medicine is used to treat or prevent symptoms of allergies. It is also used to help reduce itchy skin rash and hives. How should I use this medicine? Take this medicine by mouth with a glass of water. Follow the directions on the prescription label. You can take this medicine with food or on an empty stomach. Take your medicine at regular times. Do not take more often than directed. You may need to take this medicine for several days before your symptoms improve. Talk to your battery wrecker operator regarding the use of this medicine in children. Special care may be needed. While this drug may be prescribed for children as young as 6 years of age for selected conditions, precautions do apply. What side effects may I notice from receiving this medicine? Side effects that you should report to your doctor or health animal care technician as soon as possible: allergic reactions like skin rash, itching or hives, swelling of the face, lips, or tongue changes in vision or hearing fast heartbeat high blood pressure infection trouble passing urine or change in the amount of urine Side effects that usually do not require medical attention (report to your doctor or health animal care technician if they continue or are bothersome): irritability loss of sleep sore throat stomach pain swelling What may interact with this medicine? other medicines for colds or allergies theophylline What if I miss a dose? If you miss a dose, take it as soon as you can. If it is almost time for your next dose, take only that dose. Do not take double or extra doses. Where should I keep my medicine? Keep out of the reach of children. Store at room temperature between 15 and 30 degrees C (59 and 86 degrees F). Throw away any unused medicine after the expiration date. What should I tell my health care provider before I take this medicine? They need to know if you have any of these conditions: kidney disease liver disease an unusual or allergic reaction to cetirizine, hydroxyzine, other medicines, foods, dyes, or preservatives or trying to get breast-feeding What should I watch for while using this medicine? Visit your doctor or health animal care technician for regular checks on your health. Tell your doctor if your symptoms do not improve. You may get drowsy or dizzy. Do not drive, use machinery, or do anything that needs mental alertness until you know how this medicine affects you. Do not stand or sit up quickly, especially if you are an older patient. This reduces the risk of dizzy or fainting spells. Your mouth may get dry. Chewing sugarless gum or sucking hard candy, and drinking plenty of water may help. Contact your doctor if the problem does not go away or is severe. Fluticasone Propionate Nasal spray, solution What is this medicine? FLUTICASONE (floo TIK a sone) is a corticosteroid. It helps decrease inflammation in your nose. This medicine is used to treat the symptoms of allergies like sneezing, itching, and runny or stuffy nose. How should I use this medicine? This medicine is for use in the nose. Follow the directions on your prescription label. This medicine works best if used regularly. Do not use more often than directed. Make sure that you are using your nasal spray correctly. Ask you doctor or health care provider if you have any questions. Talk to your battery wrecker operator regarding the use of this medicine in children. While this drug may be prescribed for children as young as 4 years old for selected conditions, precautions do apply. What side effects may I notice from receiving this medicine? Side effects that you should report to your doctor or health animal care technician as soon as possible: allergic reactions like skin rash, itching or hives, swelling of the face, lips, or tongue changes in vision flu-like symptoms white patches or sores in the mouth or nose Side effects that usually do not require medical attention (report to your doctor or health animal care technician if they continue or are bothersome): burning or irritation inside the nose or throat cough headache nosebleed unusual taste or smell What may interact with this medicine? ketoconazole metyrapone some medicines for HIV vaccines What if I miss a dose? If you miss a dose, use it as soon as you remember. If it is almost time for your next dose, use only that dose and continue with your regular schedule. Do not use double or extra doses. Where should I keep my medicine? Keep out of the reach of children. Store at room temperature between 15 and 30 degrees C (59 and 86 degrees F). Throw away any unused medicine after the expiration date. What should I tell my health care provider before I take this medicine? They need to know if you have any of these conditions: infection, like tuberculosis, herpes, or fungal infection recent surgery on nose or sinuses taking corticosteroid by mouth an unusual or allergic reaction to fluticasone, steroids, other medicines, foods, dyes, or preservatives or trying to get breast-feeding What should I watch for while using this medicine? Visit your doctor or health animal care technician for regular checks on your progress. Some symptoms may improve within 12 hours after starting use. Check with your doctor or health animal care technician if there is no improvement in your condition after 3 weeks of use. Do not come in contact with people who have chickenpox or the measles while you are taking this medicine. If you do, call your doctor right away. You have been given the following additional information: Allergic Rhinitis Seasonal Allergy Conjunctivitis, Allergic Albuterol Sulfate Pressurized inhalation, suspension Prednisone Oral tablet Cetirizine Hydrochloride Oral tablet Fluticasone Propionate Nasal spray, solution Do not work for two days. (Electronically signed by Lul Mcfarland DO 12/27/2016 20:53)
--- NOTE | 2016-12-27 20:53 | ED MED RECONCILIATION SUMMARY ---
Patient: SUNITHA ORTEGA Medication Reconciliation Report [facility] VisitID: [id number] [address] [place] [address] 31y, F Registration Date/Time: 12/27/2016 Weight: 104.3 kg Height/Length: 63 in. BMI: 40.7 ALLERGIES: PCN The patient's Home Medications are listed below: NONE. The source(s) of the original Home Medication information: Not obtained. The following Medications were given to the patient in the Emergency Department: Prednisone [PO] PO 60 mg, administered: 12/27/2016 7:45:00 PM The following Medications were prescribed to the patient: Afrin nasal spray (Available over the counter): Take according to label instructions. -- Lul Mcfarland DO Albuterol HFA oral inhaler: inhale 1 to 2 puffs every four to six hours as needed for difficulty breathing. Dispense one (1) unit. No refills.(with spacer) -- Lul Mcfarland DO Prednisone 20 mg: take 3 orally every day for 4 days. Dispense sufficient quantity. No refills. -- Lul Mcfarland DO Zyrtec 10 mg: take 1 tablet orally every day as needed. Dispense twenty (20). No refills. Substitution is permissible. -- Lul Mcfarland DO Flonase nasal spray: 2 sprays to each nostril once daily for allergies. Dispense one (1) unit. No refills. Substitution is permissible. -- Lul Mcfarland DO
--- NOTE | 2016-12-27 20:53 | ED MAR SUMMARY ---
..... Medication Administration Record [facility] [address] [place] [address] Patient: SUNITHA ORTEGA Visit ID: [id number] 31y, F Weight: 104.3 kg Height/Length: 63 in BMI: 40.7 ALLERGIES: PCN Given 19:45 12/27/2016 Destiny Dior R.N. Medication Administered: PREDNISONE [PO], Dose: 60 mg Tablets PO. Medication Ordered: Prednisone PO 60 mg (NOW).
== END 2016-12-27 19:55 | disposition home or self-care (01) ==
LOC: ED SRH 19:23
DX: J30.2 Other seasonal allergic rhinitis (principal); H10.023 Other mucopurulent conjunctivitis, bilateral